=== PATIENT | female | born 1975 | race African-American/Black ===

== ENCOUNTER 2018-05-06 20:00 | Emergency (ER) | payer OTHER ==
[2018-05-06 20:15] VITALS: TEMP 98.4; BMI 47.7
--- NOTE | 2018-05-06 21:18 | PDOC ---
History of Present Illness - General Chief Complaint: Cold Symptoms Stated Complaint: COUGH/BODY ACHE Time Seen by Provider: 05/06/18 21:12 - History of Present Illness Initial Comments: 05/06/18 21:18 42-year-old female with a past medical history significant for hypertension presents for flulike symptoms times one day without fever. Past History - Past Medical History Allergies/Adverse Reactions: Allergies Allergy/AdvReac Type Severity Reaction Status Date / Time erythromycin base Allergy Verified 05/06/18 20:15 morphine Allergy Verified 05/06/18 20:15 tramadol Allergy Verified 05/06/18 20:15 Home Medications: Ambulatory Orders Amlodipine Besylate 10 mg PO ASDIR 05/06/18 Hydrochlorothiazide [Hctz -] 25 mg PO DAILY 05/06/18 COPD: No CHF: No Diabetes: No HTN: Yes - Suicide/Smoking/Psychosocial Hx Smoking History: Unknown if ever smoked Have you smoked in the past 12 months: No Information on smoking cessation initiated: No Hx Alcohol Use: No Drug/Substance Use Hx: No Review of Systems - Review of Systems Constitutional: No: Fever HEENTM: Yes: Nose Congestion Respiratory: Yes: Cough Musculoskeletal: Yes: Muscle Pain *Physical Exam - Vital Signs Last Vital Signs Temp Pulse Resp BP Pulse Ox 98.4 F 89 16 190/91 H 98 05/06/18 20:13 05/06/18 20:13 05/06/18 20:13 05/06/18 20:13 05/06/18 20:13 - Physical Exam Comments: 05/06/18 21:18 HEAD: NC/AT EYES: Conjuntiva clear Ears: Canals and TM's normal NOSE: No d/c THROAT: Moist mucous membrances, oral pharanx clear, uvula midline NECK: Supple without adenopathy CARDIAC: S1 S2 LUNGS: CTA Full and Equal breath sounds ABDOMEN: Soft NT ND MS: Full ROM in all joints without edema NEUROLOGIC: No gross sensory or motor deficits, NVID SKIN: Normal color and temperature no lesions or rashes Moderate Sedation - Procedure Monitoring Vital Signs: Procedure Monitoring Vital Signs Temperature 98.4 F 05/06/18 20:13 Pulse Rate 89 05/06/18 20:13 Respiratory Rate 16 05/06/18 20:13 Blood Pressure 190/91 H 05/06/18 20:13 O2 Sat by Pulse Oximetry (%) 98 05/06/18 20:13 *DC/Admit/Observation/Transfer Diagnosis at time of Disposition: Upper respiratory infection - Discharge Dispostion Disposition: HOME Condition at time of disposition: Stable Decision to Admit order: No - Referrals Referrals: Antoinette Ledesma MD [Primary Care Provider] - - Patient Instructions Printed Discharge Instructions: DI for Viral Upper Respiratory Infection -- Adult Additional Instructions: return to the emergency room for worsening symptoms. Please follow-up with your primary doctor in 1-2 days for further evaluation and treatment options. Tylenol pain and fever should you requireanti-inflammamatories raise your blood pressure. - Post Discharge Activity
[2018-05-06 21:34] VITALS: BP 189/118; PULSE 83
== END 2018-05-06 22:20 | disposition home or self-care (01) ==
LOC: JERFT 20:03
DX: J06.9 Acute upper respiratory infection, unspecified (principal); I10 Essential (primary) hypertension
CPT/HCPCS: 87804; 99281-25

== ENCOUNTER 2024-03-22 09:18 | Inpatient (IN) | payer OTHER ==
[2024-03-22 11:08] LABS: BASO % 0.4 % (0-2.0); EOS % 9.8 % (0-4.5); HEMATOCRIT 18.4 % (32.4-45.2); LYMPH % 11.2 % (8-40); MCHC 32.4 g/dl (32.0-36.0); MEAN CELL VOLUME 92.5 fl (80-96); MONO % 10.7 % (3.8-10.2); NEUT % 67.9 % (42.8-82.8); PLATELET COUNT 190 10^3/uL (134-434); RBC 1.99 M/mm3 (3.60-5.2); RDW 17.2 % (11.6-15.6); WHITE BLOOD COUNT 6.5 K/mm3 (4.0-10.0)
[2024-03-22 11:26] LABS: CHLORIDE 115 mmol/L (98-107); POTASSIUM 3.9 mmol/L (3.5-5.1); SODIUM 141 mmol/L (136-145)
[2024-03-22 11:28] LABS: CALCIUM 8.9 mg/dL (8.5-10.1)
[2024-03-22 11:29] LABS: ALBUMIN 3.5 g/dl (3.4-5.0); ANION GAP 13 mmol/L (4-13); CO2 13 mmol/L (21-32); GLUCOSE,RANDOM 104 mg/dL (74-106); MAGNESIUM 1.3 mg/dL (1.8-2.4)
[2024-03-22 11:32] LABS: SGOT/AST 17 U/L (15-37); SGPT/ALT 22 U/L (13-61)
[2024-03-22 11:33] LABS: BILIRUBIN,TOTAL 0.6 mg/dL (0.2-1); TOT PROT 6.4 g/dl (6.4-8.2)
[2024-03-22 11:35] LABS: ALK PHOS 62 U/L (45-117)
[2024-03-22 11:51] LABS: BLOOD UREA NITROGEN 113.4 mg/dL (7-18); CREATININE 11.5 mg/dL (0.55-1.3)
[2024-03-22] MEDS ORDERED: FUROSEMIDE 40 MG/4 ML INJECTABLE VIAL ONE (12:39)
[2024-03-22 13:14] LABS: HIV INTERPRETATION NEGATIVE (NEGATIVE)
[2024-03-22] MEDS: FUROSEMIDE 40 MG/4 ML INJECTABLE VIAL IVPUSH ONE (13:18)
[2024-03-22] MEDS ORDERED: SODIUM CHLORIDE 250 ML IV PRN (13:52)
[2024-03-22 14:11] LABS: EPI CELLS 15 /uL (0-25.1); HYALINE CASTS 0 /uL (0-3.1); URINE APPEARANCE CLOUDY; URINE BACTERIA >9,000 /uL (0-1359); URINE BILIRUBIN NEGATIVE (NEGATIVE); URINE COLOR YELLOW; URINE GLUCOSE (UA) NEGATIVE (NEGATIVE); URINE KETONE NEGATIVE (NEGATIVE); URINE LEUK ESTERASE 2+ (NEGATIVE); URINE NITRITE NEGATIVE (NEGATIVE); URINE PROTEIN 2+ (NEGATIVE); URINE RBC 29 /uL (0-23.9); URINE UROBILINOGEN 0.2 mg/dL (0.2-1.0); URINE WBC 707 /uL (0-25.8)
[2024-03-22 14:34] LABS: IRON SERUM 54 ug/dL (50-175)
[2024-03-22 14:35] LABS: TOTAL IRON BINDING CAPACITY 239 ug/dL (250-450)
[2024-03-22 16:57] LABS: INR 1.13 (0.83-1.09); PROTHROMBIN TIME (PATIENT) 12.7 SEC (9.7-13.0)
[2024-03-22 17:00] LABS: ACTIVATED PTT 30.5 SECONDS (25.2-36.5)
[2024-03-22] MEDS ORDERED: CEFTRIAXONE 1 G/50 ML PREMIX 50 ML IVPB ONE (17:23)
[2024-03-22] MEDS ORDERED: CEFTRIAXONE 1 GM in DEXTROSE 5%-WATER - 50 ML IVPB SCH (17:30)
[2024-03-22] MEDS: CEFTRIAXONE 1,000 MG in DEXTROSE 5%-WATER - 50 ML IVPB ONE (17:32)
[2024-03-22] MEDS ORDERED: LIDOCAINE 2.5%/PRILOCAINE 2.5% (5 Gram/TUBE) TP ONE (18:42)
[2024-03-22] MEDS: LIDOCAINE 2.5%/PRILOCAINE 2.5% 30 GRAM TUBE TP ONE (18:52)
[2024-03-22] MEDS: EPOETIN ALFA-EPBX 10,000 UNIT/ML VIAL SQ ONE (21:45)
[2024-03-22] MEDS ORDERED: PATIENT'S OWN MEDICATION (NON-FORMULARY) (Oxycodone Hcl/Acetaminophen [Endocet 10-325 Mg T PO SCH (22:00)
[2024-03-22] MEDS: hydrALAZINE HCL 50 MG TABLET (FP) PO SCH (22:38)
[2024-03-23] MEDS: LEVOTHYROXINE NA 75 MCG TABLET (FP) PO SCH (06:02)
[2024-03-23 07:22] LABS: MCH 28.9 pg (25.7-33.7); MCHC 32.2 g/dl (32.0-36.0); MEAN CELL VOLUME 89.8 fl (80-96); PLATELET COUNT 220 10^3/uL (134-434); RBC 2.34 M/mm3 (3.60-5.2); RDW 16.3 % (11.6-15.6); WHITE BLOOD COUNT 7.3 K/mm3 (4.0-10.0)
[2024-03-23 07:26] LABS: HEMOGLOBIN 6.8 GM/dL (10.7-15.3)
[2024-03-23 07:39] LABS: CHLORIDE 111 mmol/L (98-107); POTASSIUM 3.4 mmol/L (3.5-5.1); SODIUM 140 mmol/L (136-145)
[2024-03-23 07:47] LABS: ALBUMIN 3.1 g/dl (3.4-5.0); ANION GAP 9 mmol/L (4-13); BLOOD UREA NITROGEN 90.3 mg/dL (7-18); CALCIUM 8.6 mg/dL (8.5-10.1); CO2 19 mmol/L (21-32); GLUCOSE,RANDOM 114 mg/dL (74-106); MAGNESIUM 1.2 mg/dL (1.8-2.4)
[2024-03-23 07:50] LABS: PHOSPHOROUS 5.6 mg/dL (2.5-4.9); SGOT/AST 15 U/L (15-37); SGPT/ALT 19 U/L (13-61)
[2024-03-23 07:51] LABS: BILIRUBIN,TOTAL 0.8 mg/dL (0.2-1); TOT PROT 5.9 g/dl (6.4-8.2)
[2024-03-23 07:52] LABS: ALK PHOS 62 U/L (45-117)
[2024-03-23] MEDS: FUROSEMIDE 100 MG/10 ML INJECTABLE VIAL IVPB SCH (07:52)
[2024-03-23 07:54] LABS: CREATININE 9.3 mg/dL (0.55-1.3)
[2024-03-23] MEDS: amLODIPine BESYLATE 10 MG TABLET (FP) PO SCH (09:42)
[2024-03-23] MEDS: LOSARTAN POTASSIUM 50 MG TABLET PO SCH (09:42)
[2024-03-23] MEDS: MAGNESIUM SULFATE IN WATER 2 GM/50 ML IVPB IVPB ONE (09:42)
[2024-03-23] MEDS ORDERED: CEFTRIAXONE 1 G/50 ML PREMIX 50 ML IVPB SCH (10:00)
[2024-03-23] MEDS ORDERED: amLODIPine BESYLATE 10 MG TABLET (FP) PO SCH (10:00)
[2024-03-23] MEDS: LABETALOL HCL 100 MG TABLET (FP) PO SCH (13:25)
[2024-03-23] MEDS: POTASSIUM CHLORIDE ORAL LIQUID 20 MEQ/15 ML PO ONE (18:14)
[2024-03-23] MEDS: MAGNESIUM 2GM/50ML STERILE WATER IVPB IVPB ONE (18:15)
[2024-03-23] MEDS: ATORVASTATIN CA 40 MG TABLET (FP) PO SCH (21:06)
[2024-03-23] MEDS: LABETALOL HCL 200 MG TABLET (FP) PO SCH (21:17)
[2024-03-24 08:25] LABS: CHLORIDE 111 mmol/L (98-107); POTASSIUM 3.8 mmol/L (3.5-5.1); SODIUM 140 mmol/L (136-145)
[2024-03-24 08:33] LABS: CALCIUM 8.9 mg/dL (8.5-10.1); GLUCOSE,RANDOM 110 mg/dL (74-106)
[2024-03-24 08:34] LABS: ALBUMIN 3.2 g/dl (3.4-5.0); ANION GAP 11 mmol/L (4-13); BLOOD UREA NITROGEN 95.6 mg/dL (7-18); CO2 18 mmol/L (21-32); MAGNESIUM 1.9 mg/dL (1.8-2.4)
[2024-03-24 08:36] LABS: SGPT/ALT 18 U/L (13-61)
[2024-03-24 08:37] LABS: PHOSPHOROUS 5.9 mg/dL (2.5-4.9); SGOT/AST 13 U/L (15-37)
[2024-03-24 08:38] LABS: BILIRUBIN,TOTAL 0.5 mg/dL (0.2-1); CREATININE 9.7 mg/dL (0.55-1.3)
[2024-03-24 08:39] LABS: ALK PHOS 62 U/L (45-117)
[2024-03-24] MEDS: oxyCODONE HCL 5 MG TABLET PO PRN (08:56)
[2024-03-24] MEDS: CALCITRIOL 0.25 MCG CAPSULE (FP) PO SCH (09:10)
[2024-03-24] MEDS ORDERED: LIDOCAINE 2.5%/PRILOCAINE 2.5% 30 GRAM TUBE TP SCH (15:45)
[2024-03-24] MEDS: FLUTICASONE PROP 0.05% 16 GM NASAL SPRAY NS SCH (17:25)
[2024-03-24] MEDS: FLU VACCINE (FLULAVAL) PF 45 MCG/0.5 ML SYRINGE 2024-2025 IM ONE (17:29)
[2024-03-24] MEDS: ACETAMINOPHEN 325 MG TABLET (FP) PO PRN (17:32)
[2024-03-24] MEDS ORDERED: SODIUM CHLORIDE 250 ML IV PRN (18:52)
[2024-03-24] MEDS: EPOETIN ALFA-EPBX 10,000 UNIT/ML VIAL SQ ONE (19:46)
[2024-03-24 21:30] LABS: HEMOGLOBIN 7.8 GM/dL (10.7-15.3); MCH 28.9 pg (25.7-33.7); MCHC 32.6 g/dl (32.0-36.0); MEAN CELL VOLUME 88.7 fl (80-96); MEAN PLT VOLUME 8.1 fl (7.5-11.1); PLATELET COUNT 227 10^3/uL (134-434); RDW 16.9 % (11.6-15.6); WHITE BLOOD COUNT 7.1 K/mm3 (4.0-10.0)
[2024-03-25 01:56] VITALS: RESP 18
[2024-03-25 07:38] LABS: HEMATOCRIT 23.1 % (32.4-45.2); HEMOGLOBIN 7.5 GM/dL (10.7-15.3); MCH 29.3 pg (25.7-33.7); MCHC 32.7 g/dl (32.0-36.0); MEAN CELL VOLUME 89.8 fl (80-96); MEAN PLT VOLUME 8.5 fl (7.5-11.1); PLATELET COUNT 223 10^3/uL (134-434); RBC 2.57 M/mm3 (3.60-5.2); RDW 17.1 % (11.6-15.6); WHITE BLOOD COUNT 8.3 K/mm3 (4.0-10.0)
[2024-03-25 07:49] LABS: CHLORIDE 108 mmol/L (98-107); POTASSIUM 3.5 mmol/L (3.5-5.1); SODIUM 140 mmol/L (136-145)
[2024-03-25 07:55] LABS: ALBUMIN 3.1 g/dl (3.4-5.0); ANION GAP 10 mmol/L (4-13); BLOOD UREA NITROGEN 75.7 mg/dL (7-18); CALCIUM 9.2 mg/dL (8.5-10.1); CO2 21 mmol/L (21-32); GLUCOSE,RANDOM 139 mg/dL (74-106)
[2024-03-25 07:58] LABS: SGPT/ALT 16 U/L (13-61)
[2024-03-25 07:59] LABS: SGOT/AST 13 U/L (15-37)
[2024-03-25 08:00] LABS: BILIRUBIN,TOTAL 0.6 mg/dL (0.2-1)
[2024-03-25 08:01] LABS: ALK PHOS 61 U/L (45-117)
[2024-03-25 08:02] LABS: CREATININE 8.3 mg/dL (0.55-1.3)
[2024-03-26] MEDS ORDERED: SODIUM CHLORIDE IVPB SCH (08:00)
[2024-03-26] MEDS ORDERED: FUROSEMIDE IVPB SCH (08:00)
[2024-03-26 08:51] LABS: CHLORIDE 108 mmol/L (98-107); HEMATOCRIT 22.6 % (32.4-45.2); HEMOGLOBIN 7.4 GM/dL (10.7-15.3); MCH 29.5 pg (25.7-33.7); MCHC 32.7 g/dl (32.0-36.0); MEAN CELL VOLUME 90.2 fl (80-96); MEAN PLT VOLUME 8.3 fl (7.5-11.1); PLATELET COUNT 224 10^3/uL (134-434); POTASSIUM 3.7 mmol/L (3.5-5.1); SODIUM 138 mmol/L (136-145); WHITE BLOOD COUNT 6.6 K/mm3 (4.0-10.0)
[2024-03-26 09:04] LABS: CALCIUM 9.3 mg/dL (8.5-10.1)
[2024-03-26 09:05] LABS: ANION GAP 10 mmol/L (4-13); BLOOD UREA NITROGEN 79.4 mg/dL (7-18); CO2 20 mmol/L (21-32)
[2024-03-26 09:08] LABS: GLUCOSE,RANDOM 94 mg/dL (74-106); IRON SERUM 59 ug/dL (50-175)
[2024-03-26 09:11] LABS: PHOSPHOROUS 5.6 mg/dL (2.5-4.9); TOTAL IRON BINDING CAPACITY 245 ug/dL (250-450)
[2024-03-26 09:13] LABS: CREATININE 9.1 mg/dL (0.55-1.3)
[2024-03-26 14:59] VITALS: BMI 37.0
[2024-03-26] MEDS: LIDOCAINE HCL 2% JELLY 6 ML TP ONE (15:16)
[2024-03-26] MEDS ORDERED: SODIUM CHLORIDE 250 ML IV PRN (15:58)
[2024-03-26] MEDS: HEPARIN NA (PORCINE) 5,000 UNITS/ML 1ML VIAL IVPUSH ONE (17:44)
[2024-03-26] MEDS: EPOETIN ALFA-EPBX 10,000 UNIT/ML VIAL SQ ONE (18:31)
[2024-03-26] MEDS ORDERED: LIDOCAINE 2.5%/PRILOCAINE 2.5% 30 GRAM TUBE TP ONE (18:37)
[2024-03-26] MEDS: ATORVASTATIN CA 40 MG TABLET (FP) PO SCH (21:40)
[2024-03-26] MEDS: hydrALAZINE HCL 50 MG TABLET (FP) PO SCH (21:40)
[2024-03-26] MEDS: LABETALOL HCL 200 MG TABLET (FP) PO SCH (21:40)
[2024-03-26] MEDS: FLUTICASONE PROP 0.05% 16 GM NASAL SPRAY NS SCH (21:43)
[2024-03-26] MEDS: ACETAMINOPHEN 325 MG TABLET (FP) PO PRN (21:45)
[2024-03-26] MEDS: oxyCODONE HCL 5 MG TABLET PO PRN (21:45)
[2024-03-27] MEDS: LEVOTHYROXINE NA 75 MCG TABLET (FP) PO SCH (06:05)
[2024-03-27] MEDS: LOSARTAN POTASSIUM 50 MG TABLET PO SCH (09:31)
[2024-03-27] MEDS: amLODIPine BESYLATE 10 MG TABLET (FP) PO SCH (09:31)
[2024-03-27] MEDS: CALCITRIOL 0.25 MCG CAPSULE (FP) PO SCH (09:31)
[2024-03-27 11:21] LABS: HEMOGLOBIN 7.4 GM/dL (10.7-15.3); MCH 28.9 pg (25.7-33.7); MCHC 31.9 g/dl (32.0-36.0); MEAN CELL VOLUME 90.4 fl (80-96); MEAN PLT VOLUME 8.5 fl (7.5-11.1); PLATELET COUNT 250 10^3/uL (134-434); RBC 2.55 M/mm3 (3.60-5.2); RDW 16.7 % (11.6-15.6); WHITE BLOOD COUNT 7.9 K/mm3 (4.0-10.0)
[2024-03-27 12:00] LABS: POTASSIUM 3.6 mmol/L (3.5-5.1)
[2024-03-27 12:05] LABS: CALCIUM 9.5 mg/dL (8.5-10.1)
[2024-03-27 12:06] LABS: ALBUMIN 3.1 g/dl (3.4-5.0)
[2024-03-27 12:09] LABS: CREATININE 6.9 mg/dL (0.55-1.3)
[2024-03-27 12:11] LABS: BILIRUBIN,TOTAL 0.4 mg/dL (0.2-1)
[2024-03-27 12:57] VITALS: BP 156/81; PULSE 69; TEMP 98.4
[2024-03-27] MEDS ORDERED: HEPARIN NA (PORCINE) 5,000 UNITS/ML 1ML VIAL SQ SCH (22:00)
== END 2024-03-27 14:48 | disposition home or self-care (01) | DRG 194 ==
LOC: JER 09:18 → JERBED 12:33 → J4W 22:25 → J5S 03-26 18:23
PROVIDERS: ADMIT Internal Medicine; ATTEND Internal Medicine
PROC: 30233N1 Transfusion of Nonautologous Red Blood Cells into Peripheral Vein, Percutaneous Approach (ICD-10-PCS; 2024-03-22)
PROC: 5A1D70Z Performance of Urinary Filtration, Intermittent, Less than 6 Hours Per Day (ICD-10-PCS; principal; 2024-03-26)
DX: I13.2 Hypertensive heart and chronic kidney disease with heart failure and with stage 5 chronic kidney disease, or end stage renal disease (principal); N18.6 End stage renal disease; D63.1 Anemia in chronic kidney disease; I16.0 Hypertensive urgency; R82.71 Bacteriuria; I50.31 Acute diastolic (congestive) heart failure; E87.70 Fluid overload, unspecified; E03.9 Hypothyroidism, unspecified; Z99.2 Dependence on renal dialysis
CPT/HCPCS: 36415; 36430; 71045-TC-FY; 80048; 80053; 81003; 82728; 82962; 83540; 83550; 83735; 83880; 84100; 84466; 84484; 85025; 85027; 85610; 85730; 86705; 86709; 86803; 86850; 86900; 86901; 86922; 87086; 87186; 87340; 87389; 90656; 93005; 93010; 93306-TC; 99285-25; G0008; P9058; Q5106

== ENCOUNTER 2024-05-03 13:18 | Inpatient (IN) | payer OTHER ==
[2024-05-03] MEDS ORDERED: ACETAMINOPHEN INJECTION 100 ML ONE (14:45)
[2024-05-03] MEDS: ACETAMINOPHEN 1000 MG/100 ML BAG IVPB ONE (15:17)
[2024-05-03 15:28] LABS: HEMATOCRIT 19.3 % (32.4-45.2); MCHC 31.2 g/dl (32.0-36.0); MEAN CELL VOLUME 92.9 fl (80-96); MEAN PLT VOLUME 7.7 fl (7.5-11.1); PLATELET COUNT 187 10^3/uL (134-434); RBC 2.08 M/mm3 (3.60-5.2); RDW 18.4 % (11.6-15.6); VENOUS BASE EXCESS -21.1 mmol/L (-2-2); VENOUS O2 SATURATION 49.6 % (70-80); VENOUS PCO2 34.4 mmHg (38-52); WHITE BLOOD COUNT 10.3 K/mm3 (4.0-10.0)
[2024-05-03 15:29] LABS: VENOUS PH 7.009 (7.310-7.410)
[2024-05-03 15:34] LABS: INR 1.31 (0.83-1.09); PROTHROMBIN TIME (PATIENT) 14.3 SEC (9.7-13.0)
[2024-05-03 15:36] LABS: ACTIVATED PTT 28.8 SECONDS (25.2-36.5)
[2024-05-03 15:48] LABS: CHLORIDE 106 mmol/L (98-107); POTASSIUM 4.2 mmol/L (3.5-5.1); SODIUM 134 mmol/L (136-145)
[2024-05-03 15:50] LABS: MAGNESIUM 1.7 mg/dL (1.8-2.4)
[2024-05-03 15:51] LABS: CALCIUM 8.8 mg/dL (8.5-10.1)
[2024-05-03 15:52] LABS: ALBUMIN 3.8 g/dl (3.4-5.0); ANION GAP 19 mmol/L (4-13); CO2 9 mmol/L (21-32); GLUCOSE,RANDOM 106 mg/dL (74-106)
[2024-05-03 15:55] LABS: SGOT/AST 54 U/L (15-37); SGPT/ALT 49 U/L (13-61)
[2024-05-03 15:57] LABS: BILIRUBIN,TOTAL 0.6 mg/dL (0.2-1)
[2024-05-03 15:58] LABS: ALK PHOS 88 U/L (45-117)
[2024-05-03 16:04] LABS: BLOOD UREA NITROGEN 134.6 mg/dL (7-18); CREATININE 18.8 mg/dL (0.55-1.3)
[2024-05-03 16:18] LABS: ANISOCYTOSIS 2+; MACROCYTOSIS 1+; OVALOCYTE 1+
[2024-05-03] MEDS ORDERED: SODIUM CHLORIDE 250 ML IV PRN (16:34)
[2024-05-03] MEDS: LIDOCAINE 2.5%/PRILOCAINE 2.5% 30 GRAM TUBE TP ONE (18:02)
[2024-05-03] MEDS: hydrALAZINE HCL 50 MG TABLET (FP) PO SCH (21:34)
[2024-05-03] MEDS: ATORVASTATIN CA 40 MG TABLET (FP) PO SCH (21:35)
[2024-05-03] MEDS: LABETALOL HCL 200 MG TABLET (FP) PO SCH (21:35)
[2024-05-03] MEDS: CHLORHEXIDINE GLUCONATE 4% CLEANSER FOR DECOLONIZATION TP SCH (21:44)
[2024-05-03] MEDS: oxyCODONE HCL 5 MG TABLET PO SCH (21:44)
[2024-05-03] MEDS: ACETAMINOPHEN 325 MG TABLET (FP) PO SCH (21:45)
[2024-05-03] MEDS: EPOETIN ALFA-EPBX 10,000 UNIT/ML VIAL SQ ONE (21:54)
[2024-05-03] MEDS ORDERED: PATIENT'S OWN MEDICATION (NON-FORMULARY) (Oxycodone Hcl/Acetaminophen [Endocet 10-325 Mg T PO SCH (22:00)
[2024-05-03] MEDS: MUPIROCIN 2% TOPICAL OINTMENT FOR DECOLONIZATION NS SCH (22:30)
[2024-05-04] MEDS: LEVOTHYROXINE NA 75 MCG TABLET (FP) PO SCH (06:39)
[2024-05-04] MEDS: FUROSEMIDE 40 MG/4 ML INJECTABLE VIAL IVPUSH ONE (07:39)
[2024-05-04 07:58] LABS: HEMATOCRIT 18.8 % (32.4-45.2); MCH 30.2 pg (25.7-33.7); MCHC 33.8 g/dl (32.0-36.0); MEAN CELL VOLUME 89.4 fl (80-96); MEAN PLT VOLUME 8.3 fl (7.5-11.1); PLATELET COUNT 168 10^3/uL (134-434); RDW 17.1 % (11.6-15.6)
[2024-05-04 08:08] LABS: HEMOGLOBIN 6.3 GM/dL (10.7-15.3)
[2024-05-04 08:19] LABS: CHLORIDE 108 mmol/L (98-107); POTASSIUM 3.7 mmol/L (3.5-5.1); SODIUM 138 mmol/L (136-145)
[2024-05-04 08:22] LABS: CALCIUM 8.3 mg/dL (8.5-10.1)
[2024-05-04 08:23] LABS: ALBUMIN 3.3 g/dl (3.4-5.0); ANION GAP 15 mmol/L (4-13); CO2 15 mmol/L (21-32); GLUCOSE,RANDOM 102 mg/dL (74-106); MAGNESIUM 1.5 mg/dL (1.8-2.4)
[2024-05-04 08:26] LABS: PHOSPHOROUS 8.2 mg/dL (2.5-4.9); SGOT/AST 48 U/L (15-37); SGPT/ALT 45 U/L (13-61)
[2024-05-04 08:27] LABS: BILIRUBIN,TOTAL 0.6 mg/dL (0.2-1); BLOOD UREA NITROGEN 104.4 mg/dL (7-18); CREATININE 15.5 mg/dL (0.55-1.3)
[2024-05-04 08:28] LABS: ALK PHOS 80 U/L (45-117)
[2024-05-04] MEDS: MAGNESIUM 2GM/50ML STERILE WATER IVPB IVPB ONE (08:48)
[2024-05-04 09:03] LABS: IRON SERUM 77 ug/dL (50-175); TOTAL IRON BINDING CAPACITY 195 ug/dL (250-450)
[2024-05-04] MEDS: CALCITRIOL 0.25 MCG CAPSULE (FP) PO SCH (09:10)
[2024-05-04] MEDS: amLODIPine BESYLATE 10 MG TABLET (FP) PO SCH (09:10)
[2024-05-04] MEDS: PANTOPRAZOLE 40 MG TABLET PO SCH (09:18)
[2024-05-04] MEDS: MAGNESIUM SULF 50% (8.12 MEQ/2 ML-1 GM VIAL) IVPB ONE (10:33)
[2024-05-04] MEDS ORDERED: SODIUM CHLORIDE 250 ML IV PRN (12:44)
[2024-05-04] MEDS: SEVELAMER CARBONATE 800 MG TAB (FP) PO SCH (13:38)
[2024-05-04] MEDS: LABETALOL HCL 200 MG TABLET (FP) PO SCH (13:39)
[2024-05-04 18:12] LABS: HEMOGLOBIN 7.2 GM/dL (10.7-15.3); MCH 29.3 pg (25.7-33.7); MCHC 32.7 g/dl (32.0-36.0); MEAN CELL VOLUME 89.6 fl (80-96); MEAN PLT VOLUME 8.4 fl (7.5-11.1); PLATELET COUNT 186 10^3/uL (134-434); RBC 2.45 M/mm3 (3.60-5.2); RDW 17.1 % (11.6-15.6); WHITE BLOOD COUNT 8.8 K/mm3 (4.0-10.0)
[2024-05-04] MEDS: EPOETIN ALFA-EPBX 10,000 UNIT/ML VIAL SQ ONE (19:41)
[2024-05-04] MEDS: SENNOSIDES 8.6MG TABLET (FP) PO SCH (21:46)
[2024-05-05 07:31] LABS: HEMATOCRIT 21.1 % (32.4-45.2); MCH 29.2 pg (25.7-33.7); MCHC 33.1 g/dl (32.0-36.0); MEAN CELL VOLUME 88.3 fl (80-96); MEAN PLT VOLUME 8.2 fl (7.5-11.1); PLATELET COUNT 183 10^3/uL (134-434); RBC 2.39 M/mm3 (3.60-5.2); RDW 17.4 % (11.6-15.6)
[2024-05-05 08:32] LABS: CHLORIDE 104 mmol/L (98-107); POTASSIUM 3.3 mmol/L (3.5-5.1); SODIUM 137 mmol/L (136-145)
[2024-05-05 08:37] LABS: ALBUMIN 3.2 g/dl (3.4-5.0); ANION GAP 13 mmol/L (4-13); CALCIUM 8.5 mg/dL (8.5-10.1); CO2 19 mmol/L (21-32); GLUCOSE,RANDOM 156 mg/dL (74-106); MAGNESIUM 1.8 mg/dL (1.8-2.4)
[2024-05-05 08:40] LABS: PHOSPHOROUS 6.5 mg/dL (2.5-4.9); SGOT/AST 40 U/L (15-37)
[2024-05-05 08:41] LABS: BILIRUBIN,TOTAL 0.5 mg/dL (0.2-1); SGPT/ALT 44 U/L (13-61); TOT PROT 5.9 g/dl (6.4-8.2)
[2024-05-05 08:43] LABS: ALK PHOS 80 U/L (45-117)
[2024-05-05 08:56] LABS: BLOOD UREA NITROGEN 78.2 mg/dL (7-18); CREATININE 11.9 mg/dL (0.55-1.3)
[2024-05-05] MEDS: POLYETHYLENE GLYCOL (HEALTHYLAX) 3350 17 GM PACKET PO SCH (10:26)
[2024-05-05 10:33] LABS: ANISOCYTOSIS 0; HELMET CELLS 0; HOWELL-JOLLY BODIES 0; MACROCYTOSIS 0; OVALOCYTE 0; ROULEAU 0; SICKELED CELLS 0; TARGET CELLS 0; TEAR DROP CELLS 0; TOXIC GRANULATION 0
[2024-05-05] MEDS: diphenhydrAMINE HCL 25 MG CAPSULE (FP) PO PRN (13:35)
[2024-05-05] MEDS: FUROSEMIDE 40 MG TABLET (FP) PO ONE (17:56)
[2024-05-05] MEDS: POTASSIUM CHLORIDE ORAL LIQUID 20 MEQ/15 ML PO ONE (17:57)
[2024-05-06] MEDS: LEVOTHYROXINE NA 75 MCG TABLET (FP) PO SCH (06:54)
[2024-05-06 09:23] LABS: HEMATOCRIT 23.7 % (32.4-45.2); HEMOGLOBIN 7.9 GM/dL (10.7-15.3); MCH 29.3 pg (25.7-33.7); MCHC 33.3 g/dl (32.0-36.0); MEAN PLT VOLUME 8.2 fl (7.5-11.1); PLATELET COUNT 200 10^3/uL (134-434); RBC 2.69 M/mm3 (3.60-5.2); RDW 16.7 % (11.6-15.6); WHITE BLOOD COUNT 10.6 K/mm3 (4.0-10.0)
[2024-05-06 09:38] LABS: CHLORIDE 104 mmol/L (98-107); POTASSIUM 3.3 mmol/L (3.5-5.1); SODIUM 136 mmol/L (136-145)
[2024-05-06] MEDS: ACETAMINOPHEN 325 MG TABLET (FP) PO SCH (09:44)
[2024-05-06] MEDS: oxyCODONE HCL 5 MG TABLET PO SCH (09:45)
[2024-05-06] MEDS: CALCITRIOL 0.25 MCG CAPSULE (FP) PO SCH (09:46)
[2024-05-06] MEDS: PANTOPRAZOLE 40 MG TABLET PO SCH (09:47)
[2024-05-06] MEDS: amLODIPine BESYLATE 10 MG TABLET (FP) PO SCH (09:47)
[2024-05-06] MEDS: POLYETHYLENE GLYCOL (HEALTHYLAX) 3350 17 GM PACKET PO SCH (09:47)
[2024-05-06] MEDS: SEVELAMER CARBONATE 800 MG TAB (FP) PO SCH (09:48)
[2024-05-06 09:50] LABS: ANION GAP 14 mmol/L (4-13); BLOOD UREA NITROGEN 77.2 mg/dL (7-18); CALCIUM 8.6 mg/dL (8.5-10.1); CO2 18 mmol/L (21-32); GLUCOSE,RANDOM 119 mg/dL (74-106); MAGNESIUM 1.8 mg/dL (1.8-2.4)
[2024-05-06 11:26] LABS: ANISOCYTOSIS 0; HELMET CELLS 0; HOWELL-JOLLY BODIES 0; MACROCYTOSIS 0; OVALOCYTE 0; ROULEAU 0; SICKELED CELLS 0; TARGET CELLS 0; TEAR DROP CELLS 0; TOXIC GRANULATION 0
[2024-05-06 11:30] LABS: CREATININE 12.4 mg/dL (0.55-1.3)
[2024-05-06] MEDS: FUROSEMIDE 40 MG/4 ML INJECTABLE VIAL IVPUSH ONE (12:59)
[2024-05-06] MEDS: POTASSIUM CHLORIDE ORAL LIQUID 20 MEQ/15 ML PO ONE (12:59)
[2024-05-06] MEDS: hydrALAZINE HCL 50 MG TABLET (FP) PO SCH (13:01)
[2024-05-06] MEDS: LABETALOL HCL 200 MG TABLET (FP) PO SCH (13:02)
[2024-05-06] MEDS: FERROUS GLUCONATE 324 MG TAB (FP) PO SCH (14:39)
[2024-05-06] MEDS: SENNOSIDES 8.6MG TABLET (FP) PO SCH (22:10)
[2024-05-06] MEDS: ATORVASTATIN CA 40 MG TABLET (FP) PO SCH (22:11)
[2024-05-07 10:45] LABS: MCH 29.7 pg (25.7-33.7); MCHC 33.3 g/dl (32.0-36.0); MEAN CELL VOLUME 89.2 fl (80-96); MEAN PLT VOLUME 7.9 fl (7.5-11.1); PLATELET COUNT 226 10^3/uL (134-434); RBC 2.69 M/mm3 (3.60-5.2); RDW 17.1 % (11.6-15.6)
[2024-05-07 10:59] LABS: CHLORIDE 106 mmol/L (98-107); POTASSIUM 3.6 mmol/L (3.5-5.1); SODIUM 134 mmol/L (136-145)
[2024-05-07 11:25] LABS: CALCIUM 9.1 mg/dL (8.5-10.1)
[2024-05-07 11:26] LABS: ANION GAP 12 mmol/L (4-13); BLOOD UREA NITROGEN 80.3 mg/dL (7-18); CO2 17 mmol/L (21-32); GLUCOSE,RANDOM 142 mg/dL (74-106)
[2024-05-07 11:36] LABS: CREATININE 13.3 mg/dL (0.55-1.3)
[2024-05-07] MEDS ORDERED: SODIUM CHLORIDE 250 ML IV PRN (13:00)
[2024-05-07] MEDS: EPOETIN ALFA-EPBX 10,000 UNIT/ML VIAL IVPUSH ONE (13:17)
[2024-05-08 08:18] LABS: HEMATOCRIT 24.6 % (32.4-45.2); HEMOGLOBIN 8.3 GM/dL (10.7-15.3); MCHC 33.7 g/dl (32.0-36.0); MEAN CELL VOLUME 88.9 fl (80-96); PLATELET COUNT 225 10^3/uL (134-434); RBC 2.77 M/mm3 (3.60-5.2); RDW 17.3 % (11.6-15.6); WHITE BLOOD COUNT 8.7 K/mm3 (4.0-10.0)
[2024-05-08 08:34] LABS: CHLORIDE 104 mmol/L (98-107); POTASSIUM 3.6 mmol/L (3.5-5.1); SODIUM 139 mmol/L (136-145)
[2024-05-08 08:35] LABS: CALCIUM 9.1 mg/dL (8.5-10.1)
[2024-05-08 08:36] LABS: ALBUMIN 3.2 g/dl (3.4-5.0); ANION GAP 9 mmol/L (4-13); CO2 26 mmol/L (21-32); GLUCOSE,RANDOM 103 mg/dL (74-106)
[2024-05-08 08:39] LABS: PHOSPHOROUS 3.9 mg/dL (2.5-4.9); SGOT/AST 33 U/L (15-37); SGPT/ALT 38 U/L (13-61)
[2024-05-08 08:40] LABS: BILIRUBIN,TOTAL 0.5 mg/dL (0.2-1)
[2024-05-08 08:42] LABS: ALK PHOS 79 U/L (45-117)
[2024-05-08 08:44] LABS: CREATININE 9.8 mg/dL (0.55-1.3)
[2024-05-08 14:10] VITALS: BMI 42.4
[2024-05-08] MEDS: FUROSEMIDE 40 MG TABLET (FP) PO ONE (15:35)
[2024-05-08] MEDS: POTASSIUM CHLORIDE ORAL LIQUID 20 MEQ/15 ML PO ONE (15:38)
[2024-05-09] MEDS ORDERED: SODIUM CHLORIDE 250 ML IV PRN (09:03)
[2024-05-09 09:05] LABS: HEMATOCRIT 24.3 % (32.4-45.2); MCH 29.3 pg (25.7-33.7); MCHC 32.8 g/dl (32.0-36.0); MEAN CELL VOLUME 89.3 fl (80-96); MEAN PLT VOLUME 7.5 fl (7.5-11.1); PLATELET COUNT 209 10^3/uL (134-434); RBC 2.72 M/mm3 (3.60-5.2); RDW 17.7 % (11.6-15.6); WHITE BLOOD COUNT 7.4 K/mm3 (4.0-10.0)
[2024-05-09 09:11] VITALS: RESP 18; TEMP 98.8
[2024-05-09 09:36] LABS: CHLORIDE 103 mmol/L (98-107); POTASSIUM 3.6 mmol/L (3.5-5.1); SODIUM 135 mmol/L (136-145)
[2024-05-09 09:38] LABS: ANION GAP 8 mmol/L (4-13); CO2 24 mmol/L (21-32); GLUCOSE,RANDOM 154 mg/dL (74-106)
[2024-05-09 09:41] LABS: PHOSPHOROUS 3.7 mg/dL (2.5-4.9); SGOT/AST 27 U/L (15-37); SGPT/ALT 34 U/L (13-61)
[2024-05-09 09:42] LABS: BILIRUBIN,TOTAL 0.4 mg/dL (0.2-1); CREATININE 9.8 mg/dL (0.55-1.3)
[2024-05-09 09:43] LABS: TOT PROT 5.6 g/dl (6.4-8.2)
[2024-05-09 09:44] LABS: ALK PHOS 72 U/L (45-117)
[2024-05-09] MEDS: EPOETIN ALFA-EPBX 10,000 UNIT/ML VIAL IVPUSH ONE (11:00)
[2024-05-09] MEDS: ALBUMIN HUMAN 25% 12.5 GM/50 ML VIAL IV SCH (11:31)
[2024-05-09 12:03] VITALS: PULSE 77
[2024-05-09 12:08] VITALS: BP 168/96
== END 2024-05-09 13:51 | disposition home health service (06) | DRG 470 ==
LOC: JER 13:18 → JERBED 16:19 → JICU 19:00 → J4S 05-05 20:22
PROVIDERS: ADMIT Internal Medicine; ATTEND Internal Medicine
PROC: 30233N1 Transfusion of Nonautologous Red Blood Cells into Peripheral Vein, Percutaneous Approach (ICD-10-PCS; 2024-05-03)
PROC: 5A1D70Z Performance of Urinary Filtration, Intermittent, Less than 6 Hours Per Day (ICD-10-PCS; principal; 2024-05-09)
DX: I12.0 Hypertensive chronic kidney disease with stage 5 chronic kidney disease or end stage renal disease (principal); E87.20 Acidosis, unspecified; G93.49 Other encephalopathy; N18.6 End stage renal disease; E83.39 Other disorders of phosphorus metabolism; E87.70 Fluid overload, unspecified; D63.1 Anemia in chronic kidney disease; E03.9 Hypothyroidism, unspecified; E78.5 Hyperlipidemia, unspecified; Z91.158 Patient's noncompliance with renal dialysis for other reason; Z99.2 Dependence on renal dialysis
CPT/HCPCS: 0241U-QW; 36415; 36430; 71045-TC-FY; 80048; 80053; 82728; 82803; 82962; 83540; 83550; 83735; 84100; 84439; 84443; 84484; 85025; 85027; 85610; 85730; 86705; 86708; 86922; 87340; 87517; 87522; 93005; 93010; 99291; P9058; Q5106